=== PATIENT | female | born 1940 | race Caucasian/White ===

== ENCOUNTER → 2020-10-15 | Outpatient (CLI) | payer OTHER | LOC: GIR 07:55 | PROVIDERS: ATTEND Nurse Practitioner Psychiatric/Mental Health | DX: Z01.89 Encounter for other specified special examinations (principal) | CPT/HCPCS: 84132 ==

== ENCOUNTER → 2020-11-08 | Outpatient (CLI) | payer MEDICARE, OTHER ==
--- NOTE | 2020-11-08 12:45 | Diagnostic Imaging Report ---
FINDINGS: Osteoarthritis. COMPARISON: None FINDINGS: Multiple radiographic views of bilateral knees were obtained. There is bilateral osteoarthritis, severe on the right and moderate on the left. This consists of asymmetric prominent narrowing of the lateral tibiofemoral compartment with prominent tricompartmental osteophyte formations. There is also sclerotic remodeling of the articular surfaces of the lateral tibiofemoral compartment. Extraosseous calcification is seen projecting superior to the patella on the lateral view of the left knee may be on the basis of calcified intra-articular loose body. It measures 6 mm in diameter. No other unexpected radiopaque foreign bodies are seen. No acute fracture or dislocation is seen on either side. IMPRESSION: 1. Osteoarthritic changes to both knees, right greater than left. 2. Possible calcified intra-articular loose body of the left knee. Dictated by: Dictated on workstation # [id number]
== END ==
LOC: ORTHO 10:04
PROVIDERS: ATTEND Orthopaedic Surgery
DX: M17.0 Bilateral primary osteoarthritis of knee (principal)
CPT/HCPCS: 20610; 73562; G0463

== ENCOUNTER → 2020-12-04 | Outpatient (CLI) | payer MEDICARE | LOC: ORTHO 10:17 | PROVIDERS: ATTEND Orthopaedic Surgery | DX: M17.0 Bilateral primary osteoarthritis of knee (principal) ==

== ENCOUNTER → 2021-06-27 | Outpatient (CLI) | payer MEDICARE | LOC: ORTHO 10:09 | PROVIDERS: ATTEND Orthopaedic Surgery | DX: M17.11 Unilateral primary osteoarthritis, right knee (principal); M17.12 Unilateral primary osteoarthritis, left knee | CPT/HCPCS: 20610; G0463 ==